=== PATIENT | male | born 1985 | race Hispanic/Latino ===

== ENCOUNTER 2017-06-09 19:09 | Emergency (ER) | payer SELFPAY ==
[2017-06-09 20:11] LABS: Absolute Lymphocytes (CBC) 2.1 K/uL (0.7-4.9); Absolute Monocytes 0.6 K/uL (0.1-1.3); Eosinophils % 1.1 % (0-4.4); MPV 8.4 fL (7.6-11.3)
[2017-06-09] MEDS ORDERED: NA CHLORIDE 0.9% 1,000 ML ONE (20:12)
[2017-06-09 20:15] LABS: Absolute Neutrophil 5.2 K/uL (1.8-8.0); Basophils % 0.4 % (0-1.3); Hematocrit 45.2 % (39.6-49.0); Lymphocytes % 26.6 % (15.3-44.8); MCH 29.2 pg (27.0-35.0); MCV 86.3 fL (80-100); RBC Red Blood Cell Count 5.24 M/uL (4.33-5.43)
[2017-06-09 20:23] LABS: Potassium 4.3 mEq/L (3.6-5.0)
[2017-06-09] MEDS ORDERED: KETOROLAC 30 MG/ML INJ ONE (20:23)
[2017-06-09] MEDS ORDERED: ASPIRIN EC 81 MG TAB PO ONE (20:23)
[2017-06-09 20:29] LABS: Albumin 4.4 g/dL (3.2-5.5); Bilirubin Direct 0.1 mg/dL (0-0.2); Bilirubin Total 0.3 mg/dL (0.3-1.2); Protein, Total 7.1 g/dL (6.0-8.3)
[2017-06-09 20:29] LABS: Urine Blood NEGATIVE (NEG); Urine Glucose NEGATIVE (NEG); Urine Protein NEGATIVE (NEG); Urine Specific Gravity 1.025 (1.005-1.030)
[2017-06-09 20:30] LABS: CKMB Creatine Kinase MB 1.5 ng/ml (0.3-4.0)
--- NOTE | 2017-06-09 20:54 | RAD REPORT ---
EXAM DESCRIPTION: RAD - Chest Pa And Lat (2 Views) - 06/09/2017 8:12 pm CLINICAL HISTORY: Left-sided chest pain COMPARISON: None. TECHNIQUE: PA and lateral views of the chest were obtained. FINDINGS: The lungs are clear. Heart size is normal and central vasculature is within normal limit s. No pleural effusion or pneumothorax seen. No acute bony finding noted. No aortic abnormality. IMPRESSION: No acute cardiopulmonary process.
--- NOTE | 2017-06-09 21:12 | ER ---
Nurse's Notes [facility] Name: Jono Molina Age: 31 yrs Sex: Male : 1985 Arrival Date: 06/09/2017 Time: 19:14 Bed 18 Private MD: Diagnosis: Other chest pain-wall Presentation: 06/09 19:20 Presenting complaint: Patient states: Patient reports chest pain to left chest that aj started last night while laying down. Patient reports pain is resolved currently. Transition of care: patient was not received from another setting of care. Onset of symptoms was June 08, 2017. Care prior to arrival: None. 19:20 Method Of Arrival: Ambulatory 19:20 Acuity: GERARD 3 aj Triage Assessment: 19:22 General: Appears in no apparent distress. comfortable, Behavior is calm, cooperative, aj appropriate for age. Pain: Complains of pain in left breast. Neuro: Level of Consciousness is awake, alert, obeys commands, Oriented to person, place, time, situation. Cardiovascular: Capillary refill < 3 seconds in bilateral fingers Patient's skin is warm and dry. Respiratory: Airway is patent Respiratory effort is even, unlabored, Respiratory pattern is regular, symmetrical. Derm: Skin is intact, is healthy with good turgor, Skin is pink, warm \T\ dry. normal. Musculoskeletal: Reports pain in chest. Historical: - Allergies: 19:22 No Known Allergies; aj - Home Meds: 19:22 None [Active]; aj - PMHx: 19:22 None; aj - PSHx: 19:22 None; aj - Immunization history:: Adult Immunizations up to date. - Social history:: Smoking status: Patient uses tobacco products, denies chronic smoking, but will smoke occasionally. - Family history:: not pertinent. Screenin:26 Abuse screen: Denies threats or abuse. Denies injuries from another. Nutritional bp screening: No deficits noted. Tuberculosis screening: No symptoms or risk factors identified. Fall Risk None identified. Assessment: 19:30 General: Appears in no apparent distress. comfortable, Behavior is calm, cooperative, bp appropriate for age, NO CP AT THIS TIME, H/O ANXIETY. Pain: Denies pain. Neuro: Level of Consciousness is awake, alert, obeys commands, Oriented to person, place, time, situation, Appropriate for age. Cardiovascular: Rhythm is sinus rhythm. Respiratory: Airway is patent Respiratory effort is even, unlabored, Respiratory pattern is regular, symmetrical. GI: No signs and/or symptoms were reported involving the gastrointestinal system. : No signs and/or symptoms were reported regarding the genitourinary system. EENT: No deficits noted. Derm: No deficits noted. Musculoskeletal: Circulation, motion, and sensation intact. Range of motion: intact in all extremities. 20:07 Reassessment: PT TO XRAY. bp 20:10 Pain: Pain does not radiate. Pain began 1 day ago. bp 20:20 Reassessment: PT RETURNED FROM XRAY. ALL CURRENT ORDERS COMPLETED, RESULTS PENDING. bp 21:46 Reassessment: PT D/C HOME AMBULATORY WITH FAMILY, DX WITH NONCARDIAC CP, TO F/U WITH bp PCP. Vital Signs: 19:22 BP 128 / 91; Pulse 88; Resp 16; Temp 98.2; Pulse Ox 98% on R/A; Weight 99.79 kg; Height aj 5 ft. 8 in. (172.72 cm); 20:15 BP 136 / 92; Pulse 82; Resp 16; Pulse Ox 100% ; bp 19:22 Body Mass Index 33.45 (99.79 kg, 172.72 cm) aj ED Course: 19:14 Patient arrived in ED. es 19:21 Triage completed. aj 19:22 Arm band placed on right wrist. Patient placed in an exam room. aj 19:25 Jordan Dai, RN is Primary Nurse. bp 19:26 Anthony Paniagua MD is Attending Physician. jaswinder 19:26 Patient has correct armband on for positive identification. Bed in low position. Call bp light in reach. Side rails up X2. Adult w/ patient. cable respooler on. Pulse ox on. NIBP on. 19:39 Inserted saline lock: 20 gauge in right antecubital area, using aseptic technique. ao Blood collected. 20:12 X-ray completed. Portable x-ray completed in exam room. Patient tolerated procedure bb2 well. 20:12 Chest Pa And Lat (2 Views) XRAY In Process Unspecified. EDMS 21:47 No provider procedures requiring assistance completed. IV discontinued, intact, bp bleeding controlled, No redness/swelling at site. Pressure dressing applied. Patient maintains SpO2 saturation greater than 95% on room air. Administered Medications: 19:59 Drug: NS 0.9% 1000 ml Route: IV; Rate: 1 bolus; Site: right antecubital; bp 21:48 Follow up: IV Status: Completed infusion bp 20:20 Drug: Aspirin 81 mg Route: PO; bp 21:48 Follow up: Response: Pain is decreased bp 20:20 Drug: TORadol 30 mg Route: IVP; Site: right antecubital; bp 21:49 Follow up: Response: Pain is decreased bp Outcome: 21:12 Discharge ordered by . jaswinder 21:47 Discharged to home ambulatory, with family. bp 21:47 Condition: stable 21:47 Discharge instructions given to patient, family, Instructed on discharge instructions, follow up and referral plans. medication usage, Demonstrated understanding of instructions, follow-up care, medications, Prescriptions given X 2. 21:49 Patient left the ED. bp Signatures: Dispatcher [employer] Bernie Cedeño, RN Anthony Mercado MD MD cha Salyer, Miko Witt RN RN ao Peltier, Brian, RN RN bp Bock, Brittany bb2
--- NOTE | 2017-06-09 21:13 | EDPHYS ---
Physician Documentation [facility] Name: Jono Molina Age: 31 yrs Sex: Male : 1985 Arrival Date: 06/09/2017 Time: 19:14 Bed 18 Private MD: ED Physician Anthony Paniagua HPI: 06/09 19:50 This 31 yrs old Male presents to ER via Ambulatory with complaints of Chest jaswinder Wall Pain. 19:50 The patient or guardian reports chest pain that is located primarily in the anterior jaswinder chest wall, left. The pain does not radiate. Associated signs and symptoms: The patient has no apparent associated signs or symptoms. The chest pain is described as sharp. Duration: The patient or guardian reports multiple episodes, with no pattern. Modifying factors: The symptoms are alleviated by nothing. the symptoms are aggravated by nothing. Severity of pain: At its worst the pain was moderate in the emergency department the pain is unchanged. The patient has not experienced similar symptoms in the past. Historical: - Allergies: 19:22 No Known Allergies; aj - Home Meds: 19:22 None [Active]; aj - PMHx: 19:22 None; aj - PSHx: 19:22 None; aj - Immunization history:: Adult Immunizations up to date. - Social history:: Smoking status: Patient uses tobacco products, denies chronic smoking, but will smoke occasionally. - Family history:: not pertinent. ROS: 19:50 Constitutional: Negative for fever, chills, and weight loss, Eyes: Negative for injury, jaswinder pain, redness, and discharge, ENT: Negative for injury, pain, and discharge, Neck: Negative for injury, pain, and swelling, Respiratory: Negative for shortness of breath, cough, wheezing, and pleuritic chest pain, Abdomen/GI: Negative for abdominal pain, nausea, vomiting, diarrhea, and constipation, Back: Negative for injury and pain, : Negative for injury, bleeding, discharge, and swelling, MS/Extremity: Negative for injury and deformity, Skin: Negative for injury, rash, and discoloration, Neuro: Negative for headache, weakness, numbness, tingling, and seizure, Psych: Negative for depression, anxiety, suicide ideation, homicidal ideation, and hallucinations, Allergy/Immunology: Negative for hives, rash, and allergies, Endocrine: Negative for neck swelling, polydipsia, polyuria, polyphagia, and marked weight changes, Hematologic/Lymphatic: Negative for swollen nodes, abnormal bleeding, and unusual bruising. 19:50 Cardiovascular: Positive for chest pain, of the anterior aspect of left upper chest and left breast. Exam: 19:50 Constitutional: This is a well developed, well nourished patient who is awake, alert, jaswinder and in no acute distress. Head/Face: Normocephalic, atraumatic. Eyes: Pupils equal round and reactive to light, extra-ocular motions intact. Lids and lashes normal. Conjunctiva and sclera are non-icteric and not injected. Cornea within normal limits. Periorbital areas with no swelling, redness, or edema. ENT: Nares patent. No nasal discharge, no septal abnormalities noted. Tympanic membranes are normal and external auditory canals are clear. Oropharynx with no redness, swelling, or masses, exudates, or evidence of obstruction, uvula midline. Mucous membranes moist. Neck: Trachea midline, no thyromegaly or masses palpated, and no cervical lymphadenopathy. Supple, full range of motion without nuchal rigidity, or vertebral point tenderness. No Meningismus. Chest/axilla: Normal chest wall appearance and motion. Nontender with no deformity. No lesions are appreciated. Cardiovascular: Regular rate and rhythm with a normal S1 and S2. No gallops, murmurs, or rubs. Normal PMI, no JVD. No pulse deficits. Respiratory: Lungs have equal breath sounds bilaterally, clear to auscultation and percussion. No rales, rhonchi or wheezes noted. No increased work of breathing, no retractions or nasal flaring. Abdomen/GI: Soft, non-tender, with normal bowel sounds. No distension or tympany. No guarding or rebound. No evidence of tenderness throughout. Back: No spinal tenderness. No costovertebral tenderness. Full range of motion. Male : Normal genitalia with no discharge or lesions. Skin: Warm, dry with normal turgor. Normal color with no rashes, no lesions, and no evidence of cellulitis. MS/ Extremity: Pulses equal, no cyanosis. Neurovascular intact. Full, normal range of motion. Neuro: Awake and alert, GCS 15, oriented to person, place, time, and situation. Cranial nerves II-XII grossly intact. Motor strength 5/5 in all extremities. Sensory grossly intact. Cerebellar exam normal. Normal gait. Psych: Awake, alert, with orientation to person, place and time. Behavior, mood, and affect are within normal limits. Vital Signs: 19:22 BP 128 / 91; Pulse 88; Resp 16; Temp 98.2; Pulse Ox 98% on R/A; Weight 99.79 kg; Height aj 5 ft. 8 in. (172.72 cm); 20:15 BP 136 / 92; Pulse 82; Resp 16; Pulse Ox 100% ; bp 19:22 Body Mass Index 33.45 (99.79 kg, 172.72 cm) MDM: 19:26 Patient medically screened. [facility] 19:53 Data reviewed: vital signs, nurses notes, lab test result(s), EKG, radiologic studies, [facility] plain films. 06/09 19:49 Order name: Troponin (emerg Dept Use Only); Complete Time: 21:10 [facility] 06/09 19:49 Order name: Basic Metabolic Panel; Complete Time: 21:10 [facility] 06/09 19:49 Order name: BNP; Complete Time: 21:10 [facility] 06/09 19:49 Order name: CBC with Diff; Complete Time: 20:18 [facility] 06/09 19:49 Order name: Ckmb; Complete Time: 21:10 [facility] 06/09 19:49 Order name: CPK; Complete Time: 21:10 [facility] 06/09 19:31 Order name: Chest Pa And Lat (2 Views) XRAY; Complete Time: 21:10 [facility] 06/09 19:49 Order name: LFT's; Complete Time: 21:10 [facility] 06/09 19:49 Order name: Magnesium; Complete Time: 21:10 [facility] 06/09 19:49 Order name: D-Dimer; Complete Time: 21:10 [facility] 06/09 20:09 Order name: Urine Dipstick--Ancillary (enter results); Complete Time: 21:10 em1 06/09 19:49 Order name: EKG; Complete Time: 19:50 [facility] 06/09 19:49 Order name: Cardiac monitoring; Complete Time: 19:50 [facility] 06/09 19:49 Order name: EKG - Nurse/Tech; Complete Time: 19:50 [facility] 06/09 19:49 Order name: IV Saline Lock; Complete Time: 19:50 [facility] 06/09 19:49 Order name: Labs collected and sent; Complete Time: 19:51 [facility] 06/09 19:49 Order name: O2 Per Protocol; Complete Time: 19:51 [facility] 06/09 19:49 Order name: O2 Sat Monitoring; Complete Time: 19:51 [facility] 06/09 19:49 Order name: Urine Dipstick-Ancillary (obtain specimen); Complete Time: 20:05 [facility] Administered Medications: 19:59 Drug: NS 0.9% 1000 ml Route: IV; Rate: 1 bolus; Site: right antecubital; bp 21:48 Follow up: IV Status: Completed infusion bp 20:20 Drug: Aspirin 81 mg Route: PO; bp 21:48 Follow up: Response: Pain is decreased bp 20:20 Drug: TORadol 30 mg Route: IVP; Site: right antecubital; bp 21:49 Follow up: Response: Pain is decreased bp Disposition: 06/09/17 21:12 Discharged to Home. Impression: Other chest pain - wall. - Condition is Stable. - Discharge Instructions: Nonspecific Chest Pain, Chest Wall Pain. - Prescriptions for Motrin IB 200 mg Oral Tablet - take 2 tablet by ORAL route every 6 hours As needed as needed with food; 30 tablet. Pepcid 20 mg Oral Tablet - take 1 tablet by ORAL route every 12 hours for 10 days; 20 tablet. - Medication Reconciliation Form, Thank You Letter, Antibiotic Education, Prescription Opioid Use, Work release form form. - Follow up: Private Physician; When: 2 - 3 days; Reason: Recheck today's complaints, Continuance of care, Re-evaluation by your physician. - Problem is new. - Symptoms have improved. Signatures: Dispatcher [employer] Bernie Cedeño, RN Anthony Mercado MD MD cha Peltier, Brian RN RN bp
--- NOTE | 2017-06-10 07:36 | EKG ---
Test Date: 2017-06-09 Test Time: 19:31:37 Global Program Director: BETHANY MEASUREMENT RESULTS: Intervals: Rate: 82 NE: 146 QRSD: 90 QT: 348 QTc: 406 [place]: P: 38 NE: 146 QRS: 54 T: 39 INTERPRETIVE STATEMENTS: Normal sinus rhythm Normal ECG No previous ECG available for comparison Electronically Signed On 06-10-17 07:34:53 CDT by Terence Sprague
== END 2017-06-09 21:49 | disposition home or self-care (01) ==
LOC: ER 19:09
DX: R07.89 Other chest pain (principal); Z72.0 Tobacco use
CPT/HCPCS: 36415; 71046; 80048; 80076; 81003; 82550; 82553; 83735; 83880; 84484; 85025; 85379; 93005; 96361; 96374; 99285; J7030

== ENCOUNTER 2018-09-13 14:08 | Emergency (ER) | payer SELFPAY ==
[2018-09-13 15:27] LABS: Absolute Lymphocytes (CBC) 1.7 K/uL (0.7-4.9); Basophils % 0.5 % (0-1.3); Eosinophils % 1.4 % (0-4.4); Lymphocytes % 17.5 % (15.3-44.8); MPV 8.2 fL (7.6-11.3); Monocytes % 7.1 % (3.3-12.3); RBC Red Blood Cell Count 5.81 M/uL (4.33-5.43)
--- NOTE | 2018-09-13 15:38 | RAD REPORT ---
EXAM DESCRIPTION: Boni Parham (2 Views)09/13/2018 3:28 pm CLINICAL HISTORY: Chest pain COMPARISON: June 2017 FINDINGS: The lungs appear clear of acute infiltrate. The heart is normal size IMPRESSION: No acute abnormalities displayed
[2018-09-13 15:53] LABS: BUN Blood Urea Nitrogen 11 mg/dL (7-18); Bicarbonate 30 mmol/L (21-32); Glucose Level 96 mg/dL (74-106); Potassium 3.9 mmol/L (3.5-5.1); Sodium Level 141 mmol/L (136-145); Troponin (Emerg Dept Use Only) < 0.02 ng/mL (0.0-0.045)
--- NOTE | 2018-09-13 16:19 | EKG ---
Test Date: 2018-09-13 Test Time: 14:29:15 Orthotist Or Prosthetist: PAMELA MEASUREMENT RESULTS: Intervals: Rate: 80 LA: 142 QRSD: 80 QT: 320 QTc: 369 [place]: P: 30 LA: 142 QRS: 57 T: 36 INTERPRETIVE STATEMENTS: Normal sinus rhythm Normal ECG Compared to ECG 06/09/2017 19:31:37 No significant changes Electronically Signed On 09-13-18 16:19:20 CDT by Terence Sprague
--- NOTE | 2018-09-13 16:28 | EDPHYS ---
Physician Documentation [facility] Name: Jono Molina Age: 33 yrs Sex: Male : 1985 Arrival Date: 09/13/2018 Time: 14:10 Bed 19 Private MD: ED Physician Stef Machado HPI: 09/13 16:21 This 33 yrs old Male presents to ER via Ambulatory with complaints of Chest gs Pain. 16:21 The patient or guardian reports chest pain that is located primarily in the anterior gs chest wall. The pain does not radiate. Associated signs and symptoms: Pertinent negatives: diaphoresis, shortness of breath, vomiting. The chest pain is described as a heaviness. Duration: The patient or guardian reports multiple episodes, that are intermittent, that wax and wane, with no pattern, the episodes last approximately 1 minute(s). Modifying factors: The symptoms are alleviated by nothing. the symptoms are aggravated by nothing. Severity of pain: At its worst the pain was moderate in the emergency department the pain has improved markedly. The patient has experienced similar episodes in the past, a few times. The patient has not recently seen a physician. Historical: - Allergies: 14:28 No Known Allergies; aa5 - Home Meds: 14:28 None [Active]; aa5 - PMHx: 14:28 None; aa5 - PSHx: 14:28 None; aa5 - Immunization history:: Flu vaccine status is unknown. - Social history:: Smoking status: Patient uses tobacco products, denies chronic smoking, but will smoke occasionally. - Ebola Screening: : No symptoms or risks identified at this time. ROS: 16:21 All other systems are negative. gs Exam: 16:21 Head/Face: Normocephalic, atraumatic. Eyes: Pupils equal round and reactive to light, gs extra-ocular motions intact. Lids and lashes normal. Conjunctiva and sclera are non-icteric and not injected. Cornea within normal limits. Periorbital areas with no swelling, redness, or edema. ENT: Nares patent. No nasal discharge, no septal abnormalities noted. Tympanic membranes are normal and external auditory canals are clear. Oropharynx with no redness, swelling, or masses, exudates, or evidence of obstruction, uvula midline. Mucous membranes moist. Neck: Trachea midline, no thyromegaly or masses palpated, and no cervical lymphadenopathy. Supple, full range of motion without nuchal rigidity, or vertebral point tenderness. No Meningismus. Chest/axilla: Normal chest wall appearance and motion. Nontender with no deformity. No lesions are appreciated. Cardiovascular: Regular rate and rhythm with a normal S1 and S2. No gallops, murmurs, or rubs. Normal PMI, no JVD. No pulse deficits. Respiratory: Lungs have equal breath sounds bilaterally, clear to auscultation and percussion. No rales, rhonchi or wheezes noted. No increased work of breathing, no retractions or nasal flaring. Abdomen/GI: Soft, non-tender, with normal bowel sounds. No distension or tympany. No guarding or rebound. No evidence of tenderness throughout. Back: No spinal tenderness. No costovertebral tenderness. Full range of motion. Skin: Warm, dry with normal turgor. Normal color with no rashes, no lesions, and no evidence of cellulitis. MS/ Extremity: Pulses equal, no cyanosis. Neurovascular intact. Full, normal range of motion. Neuro: Awake and alert, GCS 15, oriented to person, place, time, and situation. Cranial nerves II-XII grossly intact. Motor strength 5/5 in all extremities. Sensory grossly intact. Cerebellar exam normal. Normal gait. 16:21 Constitutional: The patient appears alert, awake. 16:21 ECG was reviewed by the Attending Physician. Vital Signs: 14:28 Weight 104.33 kg (R); Height 5 ft. 8 in. (172.72 cm) (R); Pain 0/10; aa5 14:29 BP 155 / 77; Pulse 86; Resp 18 S; Temp 99.0(TE); Pulse Ox 100% on R/A; aa5 15:35 BP 143 / 76; Pulse 77; Resp 20; Pulse Ox 97% on R/A; aj 16:31 BP 135 / 74; Pulse 75; Resp 17; Temp 98.2(TE); Pulse Ox 99% on R/A; mh5 14:28 Body Mass Index 34.97 (104.33 kg, 172.72 cm) aa5 MDM: 16:18 Patient medically screened. gs 16:21 Differential diagnosis: acute myocardial infarction, chest wall pain, pneumonia. HEART gs Score: History: Slightly Suspicious (0), ECG: Normal (0), Age: < or = 45 years (0), Risk Factors: No Risk Factors Known (0), Troponin: < or = 1 x Normal Limit (0). Data reviewed: vital signs, nurses notes, lab test result(s), EKG, radiologic studies. Counseling: I had a detailed discussion with the patient and/or guardian regarding: the historical points, exam findings, and any diagnostic results supporting the discharge/admit diagnosis, the presence of at least one elevated blood pressure reading (>120/80) during this emergency department visit, lab results. Response to treatment: the patient's symptoms have resolved after treatment, the patient's pain is gone, the patient's condition has returned to base line. Special discussion: I have referred the patient to see his PCP for further evaluation of high blood pressure. 09/13 15:06 Order name: Basic Metabolic Panel; Complete Time: 16:19 09/13 15:06 Order name: CBC with Diff; Complete Time: 16: 09/13 15:06 Order name: Troponin (emerg Dept Use Only); Complete Time: 16:19 gs 09/13 15:06 Order name: EKG; Complete Time: 15:09/13 15:06 Order name: Cardiac monitoring; Complete Time: 15:23 09/13 15:06 Order name: XRAY Chest Pa And Lat (2 Views); Complete Time: 16:19 09/13 15:06 Order name: EKG - Nurse/Tech; Complete Time: 15:23 09/13 15:06 Order name: IV Saline Lock; Complete Time: 15:23 09/13 15:06 Order name: Labs collected and sent; Complete Time: 15:23 gs 09/13 15:06 Order name: O2 Per Protocol; Complete Time: 15:23 09/13 15:06 Order name: O2 Sat Monitoring; Complete Time: 15:23 gs EC:21 Rate is 80 beats/min. Rhythm is regular. OK interval is normal. QRS interval is normal. gs No Q waves. T waves are Normal. No ST changes noted. Clinical impression: Normal ECG. Interpreted by me. Administered Medications: No medications were administered Disposition: 09/13/18 16:27 Discharged to Home. Impression: Chest pain, unspecified, Essential (primary) hypertension. - Condition is Stable. - Discharge Instructions: Nonspecific Chest Pain, Managing Your Hypertension. - Medication Reconciliation Form, Thank You Letter, Antibiotic Education, Prescription Opioid Use, Work release form form. - Follow up: Private Physician; When: 2 - 3 days; Reason: Re-evaluation by your physician. Signatures: Dispatcher [employer] EDMS Roula Roe RN RN aa5 Stef Machado MD MD gs Peltier, Brian, RN RN bp Corrections: (The following items were deleted from the chart) 16:52 16:27 09/13/2018 16:27 Discharged to Home. Impression: Chest pain, unspecified; bp Essential (primary) hypertension. Condition is Stable. Forms are Medication Reconciliation Form, Thank You Letter, Antibiotic Education, Prescription Opioid Use. Follow up: Private Physician; When: 2 - 3 days; Reason: Re-evaluation by your physician. gs
--- NOTE | 2018-09-13 16:28 | ER ---
Nurse's Notes [facility] Name: Jono Molina Age: 33 yrs Sex: Male : 1985 Arrival Date: 09/13/2018 Time: 14:10 Bed 19 Private MD: Diagnosis: Chest pain, unspecified;Essential (primary) hypertension Presentation: 09/13 14:26 Presenting complaint: Patient states: "for the past two weeks I've been feeling aa5 lightheaded and when I am asleep sometimes one arm or both arms go numb or tingling to my arms". Pt also c/o intermittent chest pressure. Pt currently denies any symptoms. Transition of care: patient was not received from another setting of care. Onset of symptoms was September 13, 2018. Risk Assessment: Do you want to hurt yourself or someone else? Patient reports no desire to harm self or others. Initial Sepsis Screen: Does the patient meet any 2 criteria? No. Patient's initial sepsis screen is negative. Does the patient have a suspected source of infection? No. Patient's initial sepsis screen is negative. Care prior to arrival: None. 14:26 Method Of Arrival: Ambulatory aa5 14:26 Acuity: GERARD 3 aa5 Historical: - Allergies: 14:28 No Known Allergies; aa5 - Home Meds: 14:28 None [Active]; aa5 - PMHx: 14:28 None; aa5 - PSHx: 14:28 None; aa5 - Immunization history:: Flu vaccine status is unknown. - Social history:: Smoking status: Patient uses tobacco products, denies chronic smoking, but will smoke occasionally. - Ebola Screening: : No symptoms or risks identified at this time. Screenin:59 Abuse screen: Denies threats or abuse. Denies injuries from another. Nutritional aj screening: No deficits noted. Tuberculosis screening: No symptoms or risk factors identified. Fall Risk None identified. Assessment: 14:59 General: Appears in no apparent distress. comfortable, Behavior is calm, cooperative, aj appropriate for age. Pain: Denies pain. Neuro: Level of Consciousness is awake, alert, obeys commands, Oriented to person, place, time, situation, Appropriate for age. Cardiovascular: Capillary refill < 3 seconds in bilateral fingers Patient's skin is warm and dry. Respiratory: Airway is patent Respiratory effort is even, unlabored, Respiratory pattern is regular, symmetrical. Derm: Skin is intact, is healthy with good turgor, Skin is pink, warm \\T\\ dry. normal. 16:50 Reassessment: PT D/C HOME AMBULATORY WITH FAMILY, DX WITH NONSPECIFIC CHEST PAIN AND bp ESSENTIAL HTN. Vital Signs: 14:28 Weight 104.33 kg (R); Height 5 ft. 8 in. (172.72 cm) (R); Pain 0/10; aa5 14:29 BP 155 / 77; Pulse 86; Resp 18 S; Temp 99.0(TE); Pulse Ox 100% on R/A; aa5 15:35 BP 143 / 76; Pulse 77; Resp 20; Pulse Ox 97% on R/A; aj 16:31 BP 135 / 74; Pulse 75; Resp 17; Temp 98.2(TE); Pulse Ox 99% on R/A; mh5 14:28 Body Mass Index 34.97 (104.33 kg, 172.72 cm) aa5 ED Course: 14:10 Patient arrived in ED. rg4 14:26 Arm band placed on. aa5 14:28 Triage completed. aa5 14:29 EKG completed in triage. Results shown to MD. aa5 14:54 Bernie Austin, RN is Primary Nurse. aj 14:59 Patient has correct armband on for positive identification. aj 15:05 Stef Machado MD is Attending Physician. gs 15:22 Inserted saline lock: 22 gauge in right antecubital area, using aseptic technique. aj Blood collected. Patient maintains SpO2 saturation greater than 95% on room air. 15:23 Troponin (emerg Dept Use Only) Sent. aj 15:23 CBC with Diff Sent. aj 15:23 Basic Metabolic Panel Sent. aj 15:26 X-ray completed. Patient tolerated procedure well. Patient moved back from radiology. 15:27 XRAY Chest Pa And Lat (2 Views) In Process Unspecified. EDMS 16:51 No provider procedures requiring assistance completed. IV discontinued, intact, bp bleeding controlled, No redness/swelling at site. Pressure dressing applied. Administered Medications: No medications were administered Outcome: 16:27 Discharge ordered by MD. gs 16:51 Discharged to home ambulatory, with family. bp 16:51 Condition: stable 16:51 Discharge instructions given to patient, Instructed on discharge instructions, follow up and referral plans. Demonstrated understanding of instructions, follow-up care. 16:52 Patient left the ED. bp Signatures: Dispatcher [employer] EDBernie Herrera RN RN aj Calderon, Audri, RN RN aa5 Radha Greco Rubi [facility] Thania Molina [facility] Stef Machado MD MD gs Peltier, Brian, RN RN bp Corrections: (The following items were deleted from the chart) 14:31 14:29 Pulse 86bpm; Resp 18bpm; Spontaneous; Pulse Ox 100% RA; Temp 99.0F Temporal; aa5 aa5
== END 2018-09-13 16:52 | disposition home or self-care (01) ==
LOC: ER 14:08
DX: R07.9 Chest pain, unspecified (principal); I10 Essential (primary) hypertension; Z72.0 Tobacco use
CPT/HCPCS: 36415; 71046; 80048; 84484; 85025; 93005; 99284